=== PATIENT | female | born 1965 | race Caucasian/White ===

== ENCOUNTER → 2016-05-14 | Day surgery (SDC) | payer OTHER ==
[~2016-05-14] MED LIST: ACETAMINOPHEN 1000 MG/100 ML VIAL IV ONE; LACTATED RINGER'S 1000 ML INJ 1,000 ML ONE; LIDOCAINE HCL 1% PF 30 ML VIAL ONE; MIDAZOLAM HCL 2 MG/2 ML VIAL ONE; ONDANSETRON HCL 4 MG/2 ML VIAL IV PUSH ONE; PROPOFOL 100 MG/10 ML INJ IV ONE; ceFAZolin INJ 1,000 MG VIAL ONE
--- NOTE | 2016-05-14 12:15 | TN ---
cc: DOMENICO MCNULTY M.D. DATE OF SURGERY: 05/14/2016 PREOPERATIVE DIAGNOSIS Lipodystrophy of the torso. POSTOPERATIVE DIAGNOSIS Lipodystrophy of the torso. PROCEDURE [facility]. SURGEON Domenico Mcnulty MD ANESTHESIA LMA general. I'S AND O'S 1800 in, 1475 out. TOTAL ENERGY UTILIZED 60,000 joules, 20/20. DETAILS OF PROCEDURE She was properly consented, marked and anesthetized. The skin was sterilized with Betadine solution and sterile draping applied. Infusion of tumescent fluid was carried out throughout the abdomen in a combination of the followin cc of normal saline, 30 cc of 1% lidocaine plain mixed with 1 cc of epinephrine 1:1000. After the tumescent was carried out, 10 minutes allowed for vasoconstriction, delivered the energy at 20/20 per quadrant 10,000 joules. Therefore, the abdomen underwent 40,000 joules in each quadrant, right and left 10,000, for a grand total of 60,000 joules at 20/20. The puncture wounds that were done utilizing an 11 blade were thereafter closed after evacuating the effluent utilizing the reciprocating cannula of 2.5 mm in thickness. A total of 1475 cc of effluent was collected. Each and every other of the punctures were closed utilizing 5-0 chromic suture and a Steri-Strip applied. An abdominal binder was applied thereafter. The patient was awakened and extubated in the operating room, transferred back to the post-anesthesia care unit in stable condition. No complications were appreciated. The patient tolerated the procedure fairly well. MD MARLENI Kemp/DANG /11:56 AM /12:04 PM
== END | disposition home or self-care (01) ==
LOC: ESDC 08:50
PROVIDERS: ATTEND Plastic Surgery
DX: Z41.1 Encounter for cosmetic surgery (principal)
CPT/HCPCS: 00300; 15877; J0131; J0690; J2250; J2405; J3010; J7120